=== PATIENT | female | born 1985 | race African-American/Black ===

== ENCOUNTER 2016-09-25 03:32 | Emergency (ER) | payer OTHER ==
[~2016-09-25] VITALS: Ht 167.6 cm; Wt 75.0 kg
[~2016-09-25 03:32] MED LIST: TRIAM.1%T EXT; ZYRT10TA12 PO
[2016-09-25 03:34] VITALS: BP 138/67; PULSE 67; RESP 16; TEMP 98.2; O2SAT 100
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
[2016-09-25 04:09] LABS: BLOOD, URINE NEG (NEG); GLUCOSE,URINE NEG (NEG); KETONE, URINE NEG (NEG); NITRITE,URINE NEG (NEG); PH, URINE 6.5 (5.0-8.5); SQUAMOUS EPITHELIAL CELL URINE <1 /hpf (0-5); URINE COLOR LIGHT-YELLOW (YELLW/STRAW)
[2016-09-25 04:25] LABS: COMMENT (UR) CULT NOT INDICATED; CULTURE IF INDICATED CULT NOT INDICATED
[2016-09-25] MEDS ORDERED: cefTRIAXone 250 MG VIAL IM ONE (04:30)
[2016-09-25] MEDS ORDERED: LIDOCAINE HCL 1% 50 ML VIAL IM ONE (04:30)
[2016-09-25] MEDS ORDERED: AZITHROMYCIN PWD FOR SUSP 1 GM PACKET PO ONE (04:30)
[2016-09-25] MEDS ORDERED: NAPR1TAB34 PO (04:37)
[2016-09-25] MEDS ORDERED: DOXY100C PO (04:37)
[2016-09-25 07:00] LABS: CHLAMYDIA PCR NOT DETECTED (NOT DETECT); NEISSERIA PCR NOT DETECTED (NOT DETECT)
== END 2016-09-25 05:06 | disposition home or self-care (01) ==
LOC: NEPE 03:32
DX: N89.8 Other specified noninflammatory disorders of vagina (principal)
CPT/HCPCS: 81001; 84703; 87210; 87491; 87591; 96372; 99283; J0696

== ENCOUNTER → 2016-09-30 | Outpatient (CLI) | payer OTHER ==
[~2016-09-30] MED LIST changes: +CEPH500C PO; +DOXY100C PO; +NAPR1TAB34 PO; +PERC5TAB12 PO
[2016-09-30 11:06] LABS: HEMATOCRIT 40.2 % (35.0-46.0); MEAN CORPUSCULAR HGB CONC 31.7 % (32.0-36.0); PLATELET COUNT 241 TH/MM3 (150-450); RED CELL DISTRIBUTION WIDTH 13.2 % (11.6-17.2); REVIEW FLAG FINAL; WHITE BLOOD COUNT 4.7 TH/MM3 (4.0-11.0)
[2016-09-30 11:16] LABS: BACTERIA, URINE RARE /hpf; BLOOD, URINE NEG (NEG); GLUCOSE,URINE NEG (NEG); KETONE, URINE NEG (NEG); MUCUS URINE FEW /lpf (OCC); NITRITE,URINE NEG (NEG); PH, URINE 6.5 (5.0-8.5); SQUAMOUS EPITHELIAL CELL URINE 3 /hpf (0-5); URINE COLOR YELLOW (YELLW/STRAW)
[2016-09-30 11:39] LABS: ANION GAP 7 MEQ/L (5-15); BICARBONATE 30.4 MEQ/L (21.0-32.0); CHLORIDE 103 MEQ/L (98-107); POTASSIUM 4.1 MEQ/L (3.5-5.1); SODIUM (NA) 140 MEQ/L (136-145)
[2016-09-30 11:42] LABS: BHCG SCREEN QUALITATIVE LESS THAN 1 MIU/ML (0-5)
--- NOTE | 2016-09-30 16:33 | EKG ---
Date Performed: 09/30/2016 Time Performed: 10:34:15 PTAGE: 31 years EKG: Sinus rhythm LOW QRS VOLTAGE IN PRECORDIAL LEADS POSSIBLE RIGHT VENTRICULAR CONDUCTION DELAY BORDERLINE ECG NO PREVIOUS TRACING DOCTOR: Carlos Gipson Interpretating Date/Time 09/30/2016 16:30:40
== END ==
LOC: CPRE 10:11
PROVIDERS: ATTEND Plastic Surgery
DX: Z01.810 Encounter for preprocedural cardiovascular examination (principal); N62 Hypertrophy of breast; R94.31 Abnormal electrocardiogram [ECG] [EKG]; Z01.812 Encounter for preprocedural laboratory examination
CPT/HCPCS: 36415; 80051; 81001; 84703; 85027; 93005

== ENCOUNTER → 2016-10-03 | Day surgery (SDC) | payer OTHER ==
--- NOTE | 2016-10-02 15:22 | MH ---
cc: ЕКАТЕРИНА AGUILAR M.D. DATE OF ADMISSION: 10/03/2016 DATE OF : 1985 CHIEF COMPLAINT Bilateral very large breasts. Patient desiring breast reduction. HISTORY OF PRESENT ILLNESS This is a 31-year-old black female who has seen me in my office starting August 26, 2016. She came in for discussion about breast reduction. She has very large breasts for a very long time and has been thinking about getting breast reduction over several years. The breasts were large even as a teenager. The patient has had two pregnancies, one child who is 8-years-old, she did breastfeed for a short time. There is a family history of breast cancer in her grandmother and cousins. She personally has fibrocystic breasts but no masses or biopsy has ever been done. She is a nonsmoker, never smoked, has no other major medical issues, no skin conditions or contraindications to having a breast reduction done. She underwent detailed explanation of the surgery in my office including the breast measurements, the position of the current position of the nipple-areolar complex, the surgery design including the Mcduffie pattern inferior pedicle method that is suitable for her. The flap elevation with breast reduction on lateral superior and medial portions and the reshaping of the breast with anchor design surgical scars was explained in detail. Photographs were shown, also other methods of breast reduction were also shown to her. The overall surgical time being 3-4 hours or slightly longer, general anesthesia, use of sequential leg compression devices for preventing DVT, heating blankets and postoperative respiratory deep breathing exercises and use of Martinez catheter were explained. The surgery technique was explained including the flap and the breast mound shaping, the possibility of intraoperative issues such as those related to anesthesia or medications, those from surgery itself such as bleeding, damage to the surrounding structures in the area of surgery including loss of nipple-areolar sensation, devitalization of the nipple, devitalization of the skin and fat flaps, possible damage to the remote organs and structures, postoperatively the use of drains, use of pain medication, antibiotics. Again, perioperative risk and complications such as bleeding, infection, seroma, hematoma, wound dehiscence, flap necrosis, possible need for debridements and open wound care if excising and repairing the flap is not a good option, the possible long-term changes and surgeries for any asymmetry, fat necrosis, flap necrosis, possible keloid formation, hypertrophic hyperpigmented or painful scars, possible use of silicone gel sheets, Kenalog injections and also any future reshaping surgery will not be covered by her insurance as they will be considered cosmetic. The postoperative complications may generally be covered by her insurance. The patient also understands that the shape, size and overall outcome can only be approximate and not exact, the two sides may remain slightly asymmetric, may also settle down differently, there may be changes due to the surgery inside the breast that may be visible on the mammogram and may confuse interpretation of the mammogram in terms of breast cancer screening. She may also experience disproportionate growth of the breast volume if she loses or gains weight in the future. The patient was also shown multiple other patient's photographs before and after and she is agreeable to go ahead with the surgery and is excited about it. PAST MEDICAL HISTORY The patient's past medical history is negative for any major medical problems. She does have iron deficiency anemia and there is a history of blood transfusion being given to her past her miscarriage issue in the past. She had an iron infusion at one time as well. It is not currently a problem. She does not have sickle-cell anemia. She is not diabetic, although there is a family history of type 2 diabetes in elderly family members. The patient has had no others major surgeries. REVIEW OF SYSTEMS She is 5 feet 3 inches tall, weighs 180 pounds. No never smoked. No alcohol or drug abuse. No risk factor for HIV or hepatitis. The patient does not have any bleeding tendencies. No chronic disorders. PHYSICAL EXAMINATION GENERAL: Examination shows a 31-year-old black female with stable vital signs. The patient is alert, cooperative, fully oriented, emotionally stable. She is fully ambulant. HEAD/NECK: Head and neck shows clear sclerae. Pupils are equal, round, reacting to the room light. Trachea appears in midline. There is no significant masses in the Neck. The thyroid is slightly prominent but it feels uniform to touch. No nodules palpated. No bruit or thrills in the area. The carotid arteries are also normal. The neck is slightly on the short side but otherwise normal movement. CHEST: The chest has good expansion with normal breathing, moderate obesity, overall good breath sounds. HEART: Good heart sounds. No murmurs. EXTREMITIES: The upper and lower extremity are also grossly intact. Again, there is moderate obesity. BREAST: The local examination of the breast shows bilaterally large breasts approximately 1000 to 1100 cc volume estimated. The right side is slightly on the smaller dimensions. The breasts do not have any dominant masses. No nipple discharge. Areolares are somewhat enlarged and more oval than circular. The measurements of the breast shows neck to the nipple distance 29.5 cm on the right, 31 cm on the left. Nipple to the inframammary fold distance is 17 cm on the right and 18 on the left. Midline neck to the medial breast fold is 13 cm. Neck to the inframammary fold is 19 cm on the right and 18.5 on the left. Transverse chest diameter is 19 cm from the medial breast fold. Two side medial breast folds are less than 1 cm apart. The medial breast fold to the nipple distance on the right is 18, on the left it is also 18. The nipple to the midline is 11 cm on both sides as well. CLINICAL IMPRESSION Bilateral macromastia. The plan is to perform inferior pedicle based Mcduffie pattern design reduction mammoplasty. Estimated removal approximately 50%, 500-550 cc range. The patient's laboratory tests will be reviewed when available on the chart. SIGNED, NOT FULLY REVIEWED MD ALTA Bosch/ALMAZ /2:19 PM /2:48 PM SEGUNOD
[~2016-10-03] VITALS: Ht 157.5 cm; Wt 81.6 kg
[~2016-10-03] MED LIST changes: +*morphine SULFATE 8 MG/ML PERIprocedure ONLY ONE; +ACETAMINOPHEN 1000 MG/100 ML VIAL IV ONE; +CHLORHEXIDINE GLUCONATE 2 % 1 PACK (2 CLOTHS) TOPICAL PRN; +DEXAMETHASONE SOD PHOS 4 MG/ML VIAL ONE; +DICLOFENAC SODIUM 37.5 MG/ML VIAL IV PUSH ONE; -DOXY100C PO; +EPINEPHrine HCL (1:1000) 1 MG/ML VIAL ONE; +EPINEPHrine HCL (1:1000) 1 MG/ML VIAL OTHER ONE; +FAMOTIDINE 20 MG/2 ML VIAL ONE; +HYDROmorphone HCL PF 1 MG/ML VIAL ONE; +INSULIN HUMAN REGULAR 1,000 UNITS/10 ML VIAL SQ PRN; +LACTATED RINGER'S 1000 ML INJ 1,000 ML IV ONE; +LACTATED RINGER'S 1000 ML IV PRN; +LIDOCAINE 1%/EPINEPHrine 1:100,000 SOLN 20 ML VIAL ONE; +LIDOCAINE 1%/EPINEPHrine 1:100,000 SOLN 50 ML VIAL INFIL ONE; +LIDOCAINE 1%/EPINEPHrine 1:100,000 SOLN 50 ML VIAL ONE; +METOPROLOL TARTRATE 25 MG TAB PO PRN; +MIDAZOLAM HCL 2 MG/2 ML VIAL ONE; -NAPR1TAB34 PO; +ONDANSETRON HCL 4 MG/2 ML VIAL IV PUSH ONE; +POVIDONE IODINE 5% (ANTISEPSIS KIT) 4 APPLICATIONS EACH NARE PRN; +PROPOFOL 200 MG/20 ML AMP IV ONE; +SODIUM BICARBONATE 8.4% INJ 50 MEQ/50 ML SYR ONE; +SODIUM CHLORID 0.9% 500 ML IV PRN; -TRIAM.1%T EXT; -ZYRT10TA12 PO; +ceFAZolin 1,000 MG/NS 100 ML IV SCH; +ceFAZolin INJ 1,000 MG VIAL IV ONE; +ceFAZolin INJ 1,000 MG VIAL ONE; +fentaNYL CITRATE 250 MCG/5 ML AMP ONE
[2016-10-03 06:38] VITALS: BP 102/64; PULSE 72; RESP 18; TEMP 98.2; O2SAT 98
[2016-10-03 14:39] VITALS: BP 114/62; PULSE 76; RESP 16; TEMP 97.2; O2SAT 96
--- NOTE | 2016-10-03 21:11 | MP ---
cc: ЕКАТЕРИНА ENGLAND DATE OF SURGERY 10/03/16 PREOPERATIVE DIAGNOSES Bilateral macromastia with asymmetry, left side larger than right. POSTOPERATIVE DIAGNOSIS Bilateral macromastia with asymmetry, left side larger than right. OPERATION Bilateral reduction mammoplasty SURGEON Dr. Esperanza England. ANESTHESIA General INDICATIONS A 31-year-old black female with fairly large breasts, symptomatic and desiring elective breast reduction. She underwent detailed explanation of the procedure, technical details, risk, possible complications, pros, cons and possible future surgeries and possibility of skin flap necrosis leading to open wound treatment for prolonged period were explained. She is willing to go ahead with the surgery. PROCEDURE IN DETAIL The patient was brought to the operating room, was given supine position. Anesthesia was started with general anesthetic and prep and drape was done. IV antibiotic had been given. A time-out was called and completed. The preoperative markings were reinforced at the romeo points with a needle point prior to the prep and they were reinforced. The periareolar markings were made using the largest 4.5 cm diameter on the areola marker The inferior pedicle and the periareolar area in the upper portion in the V design were de-epithelialized. The dermal flap was . The upper flaps were raised using tumescent solution to provide hydro dissection and hemostasis. The lateral de-epithelialized flap was extended all the way towards the lateral extent of the incision leaving only a couple of centimeters of the final triangular skin for full excision. The dermal flap was raised off the breast tissue and preserved. The breast reduction was carried out from lateral to medial aspect and then taking it superior in a continuous fashion taking the tissue down to deep fascia. The overall hemostasis was excellent. The dermal flap was used to provide a lateral boundary for the final breast reduction position and it was sutured in place with 2-0 Vicryl. A Y pattern flaps were closed in the upper portion using the circular area for the nipple-areolar complex. The flaps were also tacked from all three sides removing the excess flap at the three-point junction. The #10 HIWOT drains were placed and secured. The overall closure was done with Vicryl and Prolene. The patient remained stable through the procedure. Intraoperative blood loss less than 50 mL. The total tissue removed on the right side 675 grams, on the left 725. No complications. The patient was allowed to recover from the anesthesia and returned to recovery room in a stable condition. SIGNED, NOT FULLY REVIEWED MD ALTA Bosch/ /4:36 PM /9:03 PM SEGUNDO
== END | disposition home or self-care (01) ==
LOC: HSDC 05:47
PROVIDERS: ATTEND Plastic Surgery
DX: N62 Hypertrophy of breast (principal); Z80.3 Family history of malignant neoplasm of breast
CPT/HCPCS: 00402; 19318; 88305; J0131; J0171; J0690; J1100; J1130; J1170; J2250; J2270; J2405; J3010; J7120; 88307

== ENCOUNTER 2016-10-04 00:40 | Emergency (ER) | payer OTHER ==
[~2016-10-04] VITALS: Ht 167.6 cm; Wt 75.0 kg
[2016-10-04 00:43] VITALS: BP 119/65; PULSE 72; RESP 15; TEMP 98.4; O2SAT 99
[2016-10-04] MEDS ORDERED: oxyCODONE/ACETAMINOPHEN 5 MG/325 MG TAB PO ONE (01:15)
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
[2016-10-04] MEDS ORDERED: CEPH500C PO (01:18)
[2016-10-04] MEDS ORDERED: PERC5TAB12 PO (01:18)
== END 2016-10-04 02:32 | disposition home or self-care (01) ==
LOC: NEPE 00:40
DX: L76.22 Postprocedural hemorrhage of skin and subcutaneous tissue following other procedure (principal); Y83.8 Other surgical procedures as the cause of abnormal reaction of the patient, or of later complication, without mention of misadventure at the time of the procedure
CPT/HCPCS: 99283

== ENCOUNTER 2017-10-16 09:30 | Emergency (ER) | payer OTHER ==
[~2017-10-16] VITALS: Ht 157.5 cm; Wt 80.0 kg
[~2017-10-16 09:30] MED LIST changes: -*morphine SULFATE 8 MG/ML PERIprocedure ONLY ONE; -ACETAMINOPHEN 1000 MG/100 ML VIAL IV ONE; -CHLORHEXIDINE GLUCONATE 2 % 1 PACK (2 CLOTHS) TOPICAL PRN; -DEXAMETHASONE SOD PHOS 4 MG/ML VIAL ONE; -DICLOFENAC SODIUM 37.5 MG/ML VIAL IV PUSH ONE; -EPINEPHrine HCL (1:1000) 1 MG/ML VIAL ONE; -EPINEPHrine HCL (1:1000) 1 MG/ML VIAL OTHER ONE; -FAMOTIDINE 20 MG/2 ML VIAL ONE; -HYDROmorphone HCL PF 1 MG/ML VIAL ONE; -INSULIN HUMAN REGULAR 1,000 UNITS/10 ML VIAL SQ PRN; -LACTATED RINGER'S 1000 ML INJ 1,000 ML IV ONE; -LACTATED RINGER'S 1000 ML IV PRN; -LIDOCAINE 1%/EPINEPHrine 1:100,000 SOLN 20 ML VIAL ONE; -LIDOCAINE 1%/EPINEPHrine 1:100,000 SOLN 50 ML VIAL INFIL ONE; -LIDOCAINE 1%/EPINEPHrine 1:100,000 SOLN 50 ML VIAL ONE; -METOPROLOL TARTRATE 25 MG TAB PO PRN; -MIDAZOLAM HCL 2 MG/2 ML VIAL ONE; -ONDANSETRON HCL 4 MG/2 ML VIAL IV PUSH ONE; -POVIDONE IODINE 5% (ANTISEPSIS KIT) 4 APPLICATIONS EACH NARE PRN; -PROPOFOL 200 MG/20 ML AMP IV ONE; -SODIUM BICARBONATE 8.4% INJ 50 MEQ/50 ML SYR ONE; -SODIUM CHLORID 0.9% 500 ML IV PRN; -ceFAZolin 1,000 MG/NS 100 ML IV SCH; -ceFAZolin INJ 1,000 MG VIAL IV ONE; -ceFAZolin INJ 1,000 MG VIAL ONE; -fentaNYL CITRATE 250 MCG/5 ML AMP ONE
[2017-10-16 09:41] VITALS: BP 114/63; PULSE 75; RESP 16; TEMP 98.8; O2SAT 98
[2017-10-16] MEDS ORDERED: AUGM875T3 PO (10:18)
[2017-10-16] MEDS ORDERED: IBUP1TAB7 PO (10:19)
--- NOTE | 2017-10-16 10:19 | PD ---
HPI Chief Complaint: Oral / Dental Pain or Problem Time Seen by Provider: 10:03 Travel History International Travel<30 days: No Contact w/Intl Traveler<30days: No Traveled to known affect area: No History of Present Illness HPI 32-year-old female here with right lower dental pain and facial swelling 3 days. No fever chills. No difficulty swallowing. Symptom severity is moderate. Aggravated by hot and cold liquids and chewing. No alleviating factors. PFSH Past Medical History Anemia: Yes Cancer: No Cardiovascular Problems: No Diabetes: No Diminished Hearing: No Endocrine: No Genitourinary: No Hepatitis: No Hiatal Hernia: No Immune Disorder: No Musculoskeletal: Yes (LOWER BACK) Neurologic: No Psychiatric: No Reproductive: Yes (OVARIAN CYST) Respiratory: No Integumentary: Yes (fiber cystic to chest. Surg. scheduled for 1 week) Immunizations Current: Yes Thyroid Disease: No Tetanus Vaccination: > 5 Years Influenza Vaccination: No ?: Not LMP: 09/22/2017 : 3 Para: 1 Miscarriage: 1 : 0 Past Surgical History AICD: No Section: Yes Gynecologic Surgery: Yes ( ) Joint Replacement: No Pacemaker: No Other Surgery: Yes (breast reduction surgery, fiber cystic to chest) Social History Alcohol Use: Yes (occasional) Tobacco Use: No Substance Use: No Allergies-Medications (Allergen,Severity, Reaction): Coded Allergies: No Known Allergies (Verified Adverse Reaction, Unknown, 10/16/17) Reported Meds & Prescriptions Reported Meds & Active Scripts Active No Active Prescriptions or Reported Medications Review of Systems Except as stated in HPI: all other systems reviewed are Neg General / Constitutional: No: Fever HENT: Positive: Dental Difficulties Physical Exam Narrative GENERAL: Alert and well-appearing 32-year-old female SKIN: Warm and dry. HEAD: Normocephalic. EYES: No injection or drainage. ENT: Decayed and fractured tooth #29. Surrounding gum erythema. No swelling to the floor the mouth. Uvula is midline. Airways patent. Normal phonation. NECK: Supple, trachea midline. No lymphadenopathy. CARDIOVASCULAR: Regular rate and rhythm without murmurs, gallops, or rubs. RESPIRATORY: Breath sounds equal bilaterally. No accessory muscle use. GASTROINTESTINAL: nondistended. Data Data Last Documented VS Vital Signs Date Time Temp Pulse Resp B/P (MAP) Pulse Ox O2 Delivery O2 Flow Rate FiO2 10/16/17 09:41 98.8 75 16 114/63 (80) 98 MDM Medical Decision Making Medical Screen Exam Complete: Yes Emergency Medical Condition: Yes Differential Diagnosis Dental abscess, dental caries, fractured tooth Narrative Course 32-year-old female here with dental abscess. She is nontoxic appearing. She has a follow-up appointment with her dentist on Friday. Diagnosis Primary Impression: Dental abscess Referrals: Primary Care Physician Departure Forms: Tests/Procedures, Work Release Enter return to work date: October 17, 2017 Scripts Ibuprofen (Ibuprofen) 800 Mg Tab 800 MG PO Q6HR Y for PAIN, #40 TAB 0 Refills Prov: Padma Ma 10/16/17 Amoxicillin-Clavulanate (Augmentin) 875-125 Mg Tab 1 TAB PO BID for Infection, #20 TAB 0 Refills Prov: Padma Ma 10/16/17 Disposition: 01 DISCHARGE HOME Condition: Stable Padma Ma October 16, 2017 10:19
== END 2017-10-16 10:25 | disposition home or self-care (01) ==
LOC: PHEFT 09:30
DX: K04.7 Periapical abscess without sinus (principal)
CPT/HCPCS: 99283